=== PATIENT | male | born 1950 | race Caucasian/White ===

== ENCOUNTER → 2017-08-16 | Outpatient (CLI) | payer MEDICARE ==
[~2017-08-16] MED LIST: B COMPLEX1 TA1; DIABETA5 MG; GLYBURIDE5 MG PO; HYDROCODONE BIT1 T11 PO; LANTUS100 U/ML; LYRICA50 MG PO; METFORMIN500 MG; MULTI VITAMINS1 TAB; NOVOLIN 701 UNIT/0.0; PANTOPRAZOLE SO20 MG
== END | disposition home or self-care (01) ==
LOC: RAD 10:20
DX: M51.36 Other intervertebral disc degeneration, lumbar region (principal); M48.061 Spinal stenosis, lumbar region without neurogenic claudication